=== PATIENT | female | born 1990 | race Caucasian/White ===

== ENCOUNTER → 2022-01-17 | Outpatient (CLI) | payer BC ==
--- NOTE | 2022-01-17 13:40 | US ---
EXAMINATION TYPE: US pelvic complete DATE OF EXAM: 01/17/2022 COMPARISON: NONE CLINICAL HISTORY: N92.3 OVULATION BLEEDING,R10.2. intermenstrual bleeding for 6 months. Intermittent pelvic pain TECHNIQUE: Transabdominal (TA). Date of LMP: 01/03/22 EXAM MEASUREMENTS: Uterus: 8.1 x 3.9 x 5.4 cm Endometrial Stripe: 1.0 cm Right Ovary: 3.5 x 1.8 x 1.8 cm Left Ovary: 3.1 x 1.8 x 2.2 cm 1. Uterus: Anteverted 2. Endometrium: wnl 3. Right Ovary: follicles noted 4. Left Ovary: follicles noted 5. Bilateral Adnexa: wnl 6. Posterior cul-de-sac: wnl IMPRESSION: No significant abnormality appreciated.
== END | disposition home or self-care (01) ==
LOC: RADUSWWP 12:57
PROVIDERS: ATTEND Obstetrics & Gynecology
DX: N92.3 Ovulation bleeding (principal); R10.2 Pelvic and perineal pain
CPT/HCPCS: 76856